=== PATIENT | male | born 1975 | race Caucasian/White ===

== ENCOUNTER 2016-03-29 12:18 | Emergency (ER) | payer OTHER ==
[2016-03-29 12:34] VITALS: BP 124/66; PULSE 78; RESP 18; TEMP 97; O2SAT 97
[2016-03-29] MEDS ORDERED: SKIN ADHESIVE (DERMABOND) 1 EACH TP ONE (12:35)
--- NOTE | 2016-03-29 12:41 | UCPHY ---
H & P Time Seen by Provider: 03/29/16 12:26 Patient Type: Established HPI/ROS: HPI Left hand injury. 40-year-old male by private vehicle. This patient reports he was hiking. He reports that he fell tripped and fell striking the dorsal aspect of his left hand on some rock and ice. He complains of scrapes to the fingers of his left hand. No other injury or complaint. He did not hit his head. No neck pain. ROS: Constitutional: No fever, no chills. No weakness. Musculoskeletal: No back pain. No neck pain. As above. Skin: Abrasions and lacerations to left hand. Neurological: No headache. No focal weakness or altered sensation. Past medical history: None. Social history: Here by himself. Physical Exam: General Appearance: Alert, no distress. This patient is responding to questions appropriately and in full sentences. This patient appears well- hydrated and well-nourished. Eyes: Pupils equal and round no pallor or injection. No lid edema, erythema or injection. Left hand exam: The left hand is neurovascularly intact. There is no pain on palpation of the bony aspects of the left hand. No bony deformity, swelling, ecchymosis, edema noted. No pain on axial compression of all the digits. No snuffbox tenderness. The left wrist, left elbow left shoulder range without any pain or impingement. He has some superficial abrasions to the ulnar aspect left mid 5th digit which is about 3 mm in diameter. He has some nonsuturable superficial small linear abrasions to the ulnar aspect of the 3rd digit. Neurological: Motor sensory function is grossly intact. Cranial nerves are normal. Gait is normal. Skin: Warm and dry, no rashes. As above. Musculoskeletal: Neck is supple and nontender. Extremities are symmetrical. All joints range without pain or impingement. Psychiatric: No agitation. No depression. Database: EKG: Imaging: Procedures: Procedure: Laceration repair. Verbal consent was obtained from the patient. The superficial, non gaping linear 1.5 cm laceration on the ulnar aspect left 3rd mid finger just distal to the PIP joint was anesthetized in the usual fashion. The wound was irrigated, draped and explored to its base with a gloved finger. There were no deep structures involved. No tendon injury was identified. No foreign body identified. The wound was repaired with skin adhesive. The wound repair was tolerated well and there were no complications. The procedure was performed by myself. Emergency department course: After wound care as above. Laceration and abrasion care discussed with the patient. He feels comfortable going home and I feel he is safe for discharge. Infection precautions and return to Urgent Care precautions reviewed. All of his questions were answered. He was discharged from Urgent Care in good condition. Differential Diagnosis: The differential diagnosis on this patient includes but is not limited to superficial abrasions and lacerations to the left hand, mechanical fall. Fracture, subluxation, dislocation, other significant traumatic injury unlikely. This represents a partial list of diagnoses considered. These considerations are based on history, physical exam, past history. Smoking Status: Never smoked Constitutional: Initial Vital Signs Temperature (C) 36.1 C 03/29/16 12:26 Heart Rate 78 03/29/16 12:26 Respiratory Rate 18 03/29/16 12:26 Blood Pressure 124/66 H 03/29/16 12:26 O2 Sat (%) 97 03/29/16 12:26 O2 Delivery Mode Room Air Allergies/Adverse Reactions: No Known Allergies Allergy (Unverified 02/06/14 07:26) Home Medications: Medication Instructions Recorded Allopurinol 300 mg DAILY 02/06/14 Albuterol [Proventil Inhaler HFA 1 - 2 puffs IH Q4H #1 mdi 03/04/15 (*)] MDM/Departure - Depart Disposition: Home, Routine, Self-Care Clinical Impression: Abrasion of left hand, Injury of left hand Condition: Good Instructions: Skin Adhesive Care (ED), Abrasion (ED) Additional Instructions: Read and follow provided instructions. Follow-up with your primary care physician in 2-3 days for re-evaluation as needed. Ibuprofen dosin mg every 6 hours with meals for the next 3 days only. Take only as needed for pain. Return to the emergency department for worsening pain, discoloration, weakness, signs of infection or other serious concerns. Referrals: Tato Pelayo MD [Primary Care Provider] - As per Instructions - PQRS PQRS Measurement: Not applicable.
== END 2016-03-29 12:59 | disposition home or self-care (01) ==
LOC: CED 12:18
PROC: 0HQGXZZ Repair Left Hand Skin, External Approach (ICD-10-PCS; principal; 2016-03-29)
DX: S61.213A Laceration without foreign body of left middle finger without damage to nail, initial encounter (principal); S60.512A Abrasion of left hand, initial encounter; Y93.01 Activity, walking, marching and hiking; W01.198A Fall on same level from slipping, tripping and stumbling with subsequent striking against other object, initial encounter; Y99.8 Other external cause status
CPT/HCPCS: G0463-PO